=== PATIENT | female | born 1965 | race Caucasian/White ===

== ENCOUNTER → 2018-03-09 14:11 | Outpatient (CLI) | payer BC, SELFPAY ==
[2018-03-12 13:22] LABS: HPV Reflexed? NOT INDICATED
== END ==
PROVIDERS: Visit Provider Obstetrics & Gynecology
DX: Z12.4 Encounter for screening for malignant neoplasm of cervix (principal)
CPT/HCPCS: 88175; G0145

== ENCOUNTER → 2019-02-19 11:56 | Outpatient (CLI) | payer BC, SELFPAY ==
[2017-04-12 07:09] VITALS: BMI 27.1
--- NOTE | 2019-02-19 11:58 | RAD_ITS ---
STUDY: X-RAY CHEST REASON FOR EXAM: Female, 53 years old. Chest pain and cough TECHNIQUE: PA and lateral views of the chest. COMPARISON: None. FINDINGS: The lungs are clear and expanded. There is no demonstrated pleural abnormality. Normal size heart. Normal mediastinum and fritz. Normal visualized pulmonary arteries. Normal visualized aortic arch and descending thoracic aorta. There is a rotatory scoliosis. Normal visualized ribs, clavicles, and shoulders. There is no demonstrated abnormality of the visualized soft tissue structures of the upper abdomen. RAD/Chest PA and Lateral IMPRESSION: No acute pulmonary process Electronically Signed: Jose Gonzalez MD at 12:11 EDT , Service support ,
--- OUTSIDE RECORDS SUMMARY | 2019-02-24 01:27 | XMS RPT_ITS | CCD ---
:1965 External Reference #:[id number] Author Organization [facility] Care Team Providers Name Role Phone Katina Lundy Unavailable Slarb Unavailable Unavailable Mosnter Unavailable Allergies Reported Allergen Reaction(s) Severity Date of Onset Location Latex Exam Gloves Comprehens anabell Internal *MEDICAL DEVICES AND Medicin e (52524) SUPPLIES* Translations: [ Latex Exam Gloves *MEDICAL DEVICES AND SUPPLIES*] Tape 1X5yd *MEDICAL Compreh ensive Internal DEVICES AND SUPPLIES* Medici ne (14593) Translations: [ Tape 1X5yd *MEDICAL DEVICES AND SUPPLIES*] Medications Medication Name Sig Date Prescriber Location anastrozole Arimidex 1 MG Oral Melodie Dickerson Comprehen sive Tablet daily (1 MG) Internal Medicine Active (75042) Azithromycin Zithromax Z-Beni 250 02-01-2019 Lorenza Rausch ehensive MG Oral Tablet tad Internal Medicine Tablet qd for 0 days (13874) Quantity: 1 {Package} Refills: 0 Ordered: 01-Feb-2019 Lorenza Hook DO Start : 01-Feb-2019 Active Codeine / Cheratussin AC 07-24-2016 Melodie Dickerson Comprehensive guaiFENesin 100-10 MG/5ML Oral - Internal Medicine Syrup 1-2 Teaspoon 02-01-2019 (62540) q6hrs prn for cough for 0 days Quantity: 6 {Ounce} Refills: 0 Ordered: 01-Feb-2019 Melodie Dickerson LPN Start : 24-Jul-2016 End : 01-Feb-2019 Inactive Desoximetasone Topicort 0.25 % 07-24-2016 Melodie Dickreson Comprehens anabell External Ointment 1 Internal Medicine (one) Ointment daily (48993) for 0 days Quantity: 1 {Tube} Refills: 0 Ordered: 24-Jul-2016 Slarb Melodie SOTO Start : 24-Jul-2016 Active Ergocalciferol Ergocalciferol 92820 02-01-2019 Melodie Tuan Compr ehensive UNIT Oral Capsule 1 Arelis Ambriz Selenanolan Internal Medicine (one) Capsule weekly (18854) for 0 days Quantity: 24 {QS} Refills: 0 Ordered: 01-Feb-2019 Kamron MAHMOOD, Arelis Lundy CNP, Arelis Ambriz Start : 01-Feb-2019 Active Loratadine Loratadine 10 MG 07-24-2016 Arelis Lundy Comprehensi ve Oral Tablet 1 (one) Internal Medicine Tablet daily for 0 (76440) days Quantity: 30 {Tablet} Refills: 0 Ordered: 24-Jul-2016 Kamron ELECTROPLATER APPRENTICE, Arelis Lundy CNP, Arelis Ambriz Start : 24-Jul-2016 Active PARoxetine PARoxetine HCl 10 MG Melodie Tuan Compreh ensive Oral Tablet daily Internal M edicine (10 MG) Active (34782) Problems Active Problems Category Problem Name Status Date Location Cancer of breast Primary malignant Active Compre hensive Internal neoplasm of breast Medicine (23033) Nutritional deficiencies Vitamin D deficiency Active Comprehensive Internal Medicine (06918 ) Other skin disorders Eruption Active Compreh ensive Internal Medicine (85946 ) Comment: bilateral ears flaky and nec k line ? eczema Other upper respiratory Allergic rhinitis Active Comprehensive Internal disease Medicine (22040 ) Other upper respiratory Pain in throat Active Co mprehensive Internal disease Medicine (79569 ) Other upper respiratory Nasal sinus problem Active Comprehensive Internal disease Medicine (17376 ) Other upper respiratory Bacterial sinusitis Active Comprehensive Internal infections Medicine (04089 ) Comment: likely viral, sending strep culture recommend waiting till clear Residual codes; Increased body mass Active Compr ehensive Internal unclassified index Medicine (15862 ) Syncope Syncope Active Comprehensive I nternal Medicine (17378 ) Past or Other Problems Category Problem Name Status Date Location Headache; including Headache; including C omprehensive Internal migraine migraine Medicine (30059 ) Unclassified Rash/skin eruption Comprehen sive Internal Medicine (21513 ) Unclassified Sinus pressure Comprehensive Internal Medicine (64480 ) Unclassified Sinusitis, bacterial Compreh ensive Internal Medicine (87086 ) Unclassified Comprehensive I nternal Medicine (15772 ) Unclassified BMI 29.0-29.9,adult Comprehe nsive Internal Medicine (49763 ) Unclassified [facility]ancies [facility]11140 ) Comment: 2 pregnancies Unclassified Nonsmoker [facility] (72404) Results Result Name Value Range Unit Interpretation Flag Date Location progress on 2018-07 PROGRESS HNO ID: [id number] Normal 08-18-2018 [place] Author: Doug Rodriguez Service: ? Bakari Author Type: Nurse Practitioner ([id number]) Type: Progress Notes Filed: 08/18/2018 1:49 PM Note Text: Chief Complaint Patient presents with: Established Patient HPI: Jennifer Everett is a 52 year old female who presents here tod for follow up breast cancer. Per Dr. Butterfield's previous note: H/o post-menopausal female (menopause around age 39-40) with an unremarkable past medical history. ? She was found to have an abnormality on a screening mammogra m in the left breast. ? She underwent core needle biopsy on 05/08/2016. ? Pathology: Left breast, ultrasound-guided mammotome core biopsy: ?Invasive ductal carcinoma, nuclear gra de 3 (0.5 cm in greatest length). ? ER (clone 6F11) ?>95%, strong CO (clone 16/1E2) ?58%, moderate Her-2Neu (clone CB11) ?1-2+ ? IN SITU HYBRIDIZATION (GUADALUPE) FOR HER2 Interpretation: ?Not Amplified HER2 : CEP-17 Ratio:?0.95 Average HER2 Signal:?2.05 Average CEP-17 Signal:?2.15 Number of Tumor Cells Scanned:?50 ? Social and underwent partial breast mastectomy and sentinel lymph node biopsy on 05/24/2016 area ? Pathology: FROZEN SECTION DIAGNOSIS A. ?[place] lymph node, left axilla, biopsy: ?One lymph node, negative for metastati c carcinoma. ? MICROSCOPIC DIAGNOSIS A. ?Lymph node, left axilla, biopsy: ?One lymph node, negative for metastati c carcinoma. B. ?Left breast, lumpectomy: ?Invasive ductal carcinoma. ?Ductal carcinoma in situ. ?See cancer summary below. C. ?Additional left breast tissue: ?Skeletal muscle tissue and fibroadipos e tissue with changes consistent with previous biopsy site. ?Negative for malignancy in the submitt ed specimen. D. ?Additional anterior, superior and lateral margin: ?Focal intraductal hyperplasia with aty patria. ?Negative for carcinoma in the submitte d specimen. ? INVASIVE BREAST CANCER SUMMARY: (Including A-D) ??Specimen ??partial breast ??Procedure ??excision with wire-guided localization ??Lymph node sampling ??sentinel lymph node ??Specimen integrity ??multiple designated specimens ??Specimen size ?Lumpectomy specimen 5 x 5 x 3 cm ?Additional breast tissue 2 x 1.5 x 0.5 cm. ?Additional anterior, superior and lateral margin 5 x 2. 5 x 0.7 cm. ??Specimen laterality - left ??Tumor site ??not specified ??Tumor size ??1.2 x 1.2 x 1 cm ??Tumor focality ??single focus of invasive carcinoma ??Macroscopic and Microscopic extent of tumor: ?Skin ??invasive carcinoma does not invade into the dermi s or epidermis ?Nipple ??not applicable ???Skeletal muscle ??Skeletal muscle is present and is free of carcinoma (specimen B in block 2 and specimen C) ??Ductal carcinoma in situ (DCIS) - Ductal carcinoma in situ is present. ???Extensive intraductal component (EIC) - negative ?Estimated size (extent) of DCIS ??Intraductal carcinoma in situ comprise about 20% of the total tumor volume and present adjacent and away from the invasive tumor. ?Number of blocks with DCIS - 6 ?Number of blocks examined - 12 ??Architectural patterns ??cribriform and solid ?Nuclear grade ??grade 3 (high) ?Necrosis ??present, central (expansive ?comedo??necrosi s) ??Lobular carcinoma in situ (LCIS) ??not identified ??Histologic type of invasive carcinoma ??invasive ductal ca rcinoma (no special type) ??Histologic Grade: Cynthia grade: ?Glandular/tubular differentiation - score 3 ?Nuclear pleomorphism - score 3 ?Mitotic count ??score 2 ?Overall grade - 3 (score of 8) ??Margins: ?Margins uninvolved by invasive carcinoma. ?See comment. ??Treatment effect - no known presurgical therapy. ??Lymph-Vascular invasion ??not identified ??Dermal lymph-vascular invasion ??not identified ??Lymph nodes: ?Number of sentinel lymph nodes examined - 1 ?Total number of lymph nodes examined (sentinel and nonse ntinel) - 1 ?Number of lymph nodes with macrometastases, micrometasta ses and isolated tumor cells -?0 ?Method of evaluation of sentinel lymph nodes ??H AND?E , multiple levels and IHC. ?Distance metastasis ??not applicable ??Additional pathologic findings ??intraductal hyperplasia w ith focal atypia. ?- Changes consistent with previous biopsy site. ??Ancillary studies - previously performed on section of karen or ([id number] / [id number]). ?ER ??positive (>95%, strong) ?CO ??positive (58%, moderate) ?Her2 mickey ??equivocal (1-2+) ?Her2 by dual GUADALUPE ??negative / not amplified ??Microcalcifications ??present in DCIS ? Oncotype Dx--Recurrence score 31 indicating 20% risk recurre nce. ? ? ? Previous therapy: 1) AC followed by [facility]. 2) Radiation 01/20/17 to 02/18/17 ? Current therapy: 1) Anastrozole. ?Began radiation. ? I've had a burning throbbing pain to my left armpit for the past week and a half. I feel like I'm coming down with something. Besides that I'm having some joint pain. My elbows, hands and right foot pain . I feel like I'm walking on a marble. ? Appetite:good-eating is not fun like it used to be Energy level:it's been great up until the last week an a half. Denies fevers. Resp:occ. dry cough I've had a lot of drainage lately natalie es sob h/o seasonal allergies Cardiac:denies chest pain/palpitations GI:denies abd pain, n/v, moving bowels regularly :denies dysuria/hematuria Extrem:my hands, knees and elbows as above Endo:denies hot flashes Neuro:denies symptoms of neuropathy Skin:denies rashes/lesions Heme:denies bleeding The ROS is otherwise negative. Past medical history, appointments, medications, allergies r eviewed. No changes. EXAM: BP 120/66 Pulse 86 Temp 37.1 ?C (98.7 ?F) (Oral) Wt 76 .4 kg (168 lb 8 oz) LMP 08/01/2005 BMI 28.42 kg/m? APPEARANCE Well appearing, alert, in no acute distress, well -hydrated, well nourished. HEART RRR with normal S1 and S2, no murmurs LUNG clear to auscultation BREAST FEMALE no mass/nodule b/l, scar to L upper/outer-tend er, L axillary scar tender LYMPH NODES No cervical lymphadenopathy, No supraclavicular lymphadenopathy and No axillary lymphadenopathy. ABDOMEN bowel sounds normoactive, soft, non-tender, non-dist ended, without organomegaly or palpable masses EXTREMITIES No edema NEURO Awake, alert and oriented x 3, Normal gait and No invo luntary motions. SKIN Skin color, texture, turgor normal, no suspicious rashe s or lesions RADIOLOGY: Mammogram 08/13/18: IMPRESSION: BENIGN FINDING There is no mammographic evidence of malignancy. A 1 year sc reening mammogram is recommended. ASSESSMENT/PLAN: 1. Malignant neoplasm of upper-outer quadrant of left breast in female, estrogen receptor positive (HCC) - ICD9: 174.4, V86.0, ICD10 : C50.412, Z17.0 pT1c (1.2 cm; grade 3; no ALI) pN0(sln) MX ER/CO positive, H ER-2 nonamplified invasive ductal carcinoma the left breast. - ?No concerning findings on exam. - Tolerating arimidex poorly d/t joint pain. Advised pt. to stop arimidex for the next 3 weeks. Pt. will call office in 3 weeks with a n update on her symptoms. - ?Mammogram due in July 2019. - ?Follow up in 6 months. - ?Pt. aware to call office with any questions/concerns. ? The patient indicates understanding of these issues and agre es with the plan. Doug Yoo APRN.[facility] cnovsp on 2018-07-25 6 CNOVSP Visit (SP) Office (RIKY) [facility] JENNIFER EVERETT ([id number]) 1965 [place] Date Time Provider Department ([id number]) 08/18/18 11:30 AM DOUG YOO During your visit today, we recorded the following informati on about you: Temperature Pulse Blood pressure Weight 98.7 degrees 86/minute 120/66 76.4 kg Doug Yoo APRN.ELECTROPLATER APPRENTICE 08/18/2018 1:49 PM Signed Chief Complaint Patient presents with: Established Patient HPI: Jennifer Everett is a 52 year old female who presents he re today for follow up breast cancer. Per Dr. Butterfield's previous note: H/o post-menopausal female (menopause around age 39-40 ) with an unremarkable past medical history. ? She was found to have an abnormality on a screening mammogra m in the left breast. ? She underwent core needle biopsy on 05/08/2016. ? Pathology: Left breast, ultrasound-guided mammotome core biopsy: ?Invasive ductal carcinoma, nuclear g rade 3 (0.5 cm in greatest length). ? ER (clone 6F11) ?>95%, strong CO (clone 16/1E2) ?58%, moderate Her-2Neu (clone CB11) ?1-2+ ? IN SITU HYBRIDIZATION (GUADALUPE) FOR HER2 Interpretation: ?Not Amplified HER2 : CEP-17 Ratio:?0.95 Average HER2 Signal:?2.05 Average CEP-17 Signal:?2.15 Number of Tumor Cells Scanned:?50 ? Social and underwent partial breast mastectomy a nd sentinel lymph node biopsy on 05/24/2016 area ? Pathology: FROZEN SECTION DIAGNOSIS A. ?[place] lymph node, left axilla, biopsy: ?One lymph node, negative for metastati c carcinoma. ? MICROSCOPIC DIAGNOSIS A. ?Lymph node, left axilla, biopsy: ?One lymph node, negative for metastati c carcinoma. B. ?Left breast, lumpectomy: ?Invasive ductal carcinoma. ?Ductal carcinoma in situ. ?See cancer summary below. C. ?Additional left breast tissue: ?Skeletal muscle tissue and fibroadipos e tissue with changes consistent with previous biopsy site. ?Negative for malignancy in the submitt ed specimen. D. ?Additional anterior, superior and lateral margin: ?Focal intraductal hyperplasia with aty patria. ?Negative for carcinoma in the submitte d specimen. ? INVASIVE BREAST CANCER SUMMARY: (Including A-D) ??Specimen ??partial breast ??Procedure ??excision with wire-guided localization ??Lymph node sampling ??sentinel lymph node ??Specimen integrity ??multiple designated specimens ??Specimen size ?Lumpectomy specimen 5 x 5 x 3 cm ?Additional breast tissue 2 x 1.5 x 0.5 cm. ?Additional anterior, superior and lateral margin 5 x 2. 5 x 0.7 cm. ??Specimen laterality - left ??Tumor site ??not specified ??Tumor size ??1.2 x 1.2 x 1 cm ??Tumor focality ??single focus of invasive carcinoma ??Macroscopic and Microscopic extent of tumor: ?Skin ??invasive carcinoma does not invade into the dermi s or epidermis ?Nipple ??not applicable ???Skeletal muscle ??Skeletal muscle is present and is free of carcinoma (specimen B in block 2 and specimen C) ??Ductal carcinoma in situ (DCIS) - Ductal carcinoma in situ is present. ???Extensive intraductal component (EIC) - negative ?Estimated size (extent) of DCIS ??Intraduct al carcinoma in situ comprise about 20% of the total tumor volume and present adjacent and away from the invasive tumor. ?Number of blocks with DCIS - 6 ?Number of blocks examined - 12 ??Architectural patterns ??cribriform and solid ?Nuclear grade ??grade 3 (high) ?Necrosis ??present, central (expansive ?comedo??necrosi s) ??Lobular carcinoma in situ (LCIS) ??not identified ??Histologic type of invasiv e carcinoma ??invasive ductal carcinoma (no special type) ??Histologic Grade: Cynthia grade: ?Glandular/tubular differentiation - score 3 ?Nuclear pleomorphism - score 3 ?Mitotic count ??score 2 ?Overall grade - 3 (score of 8) ??Margins: ?Margins uninvolved by invasive carcinoma. ?See comment. ??Treatment effect - no known presurgical therapy. ??Lymph-Vascular invasion ??not identified ??Dermal lymph-vascular invasion ??not identified ??Lymph nodes: ?Number of sentinel lymph nodes examined - 1 ?Total number of lymph nodes examined (sentinel and nonse ntinel) - 1 ?Number of lymph nodes with macrometastases, microm etastases and isolated tumor cells -?0 ?Method of evaluation of sentinel lymph nodes ??H AND?E, multiple levels and IHC. ?Distance metastasis ??not applicable ??Additional pathologic findings ??intraductal h yperplasia with focal atypia. ?- ?- Changes consistent with previous biopsy site. ??Ancillary studies - previously performed on section of karen or ([id number] / [id number]). ?ER ??positive (>95%, strong) ?CO ??positive (58%, moderate) ?Her2 mickey ??equivocal (1-2+) ?Her2 by dual GUADALUPE ??negative / not amplified ??Microcalcifications ??present in DCIS ? Oncotype Dx--Recurrence score 31 indicating 20% risk recurre nce. ? ? ? Previous therapy: 1) AC followed by [facility]. 2) Radiation 01/20/17 to 02/18/17 ? Current therapy: 1) Anastrozole. ?Began radiation. ? I've had a burning throbbing pain to my left armpit f or the past week and a half. I feel like I'm coming down with s omething. Besides that I'm having some joint pain. My elbows, hands and right f oot pain. I feel like I'm walking on a marble. ? Appetite:good-eating is not fun like it used to be E nergy level:it's been great up until the last week an a half. Denies fevers. Resp:occ. dry cough I've gil d a lot of drainage lately denies sob h/o seasonal allergies Cardiac:denies chest pain/palpitations GI:denies abd pain, n/v, moving bowels regularly :denies dysuria/hematuria Extrem:my hands, knees and elbows as above Endo:denies hot flashes Neuro:denies symptoms of neuropathy Skin:denies rashes/lesions Heme:denies bleeding The ROS is otherwise negative. Past medical history, appoin tments, medications, allergies reviewed. No changes. EXAM: BP 120/66 Pulse 86 Temp 37.1 ?C (98.7 ?F) (Oral) Wt 76.4 kg (168 lb 8 oz) LMP 08/01/2005 BMI 28.42 kg/m? APPEARANCE Well appearing, alert, in no acute distress, we ll-hydrated, well nourished. HEART RRR with normal S1 and S2, no murmurs LUNG clear to auscultation BREAST FEMALE no mass/nodule b/l, scar to L upper/outer-tender, L axillary scar tender LYMPH NODES No cervical lymp hadenopathy, No supraclavicular lymphadenopathy and No axillary lymphadenopathy. ABDOMEN bowel sounds normoactive, soft, non-tender, non-dist ended, without organomegaly or palpable masses EXTREMITIES No edema NEURO Awake, alert and oriented x 3, Normal gait and N o involuntary motions. SKIN Skin color, texture, turgor normal, no suspicious rashe s or lesions RADIOLOGY: Mammogram 08/13/18: IMPRESSION: BENIGN FINDING There is no mammographic evidence of malignancy. A 1 year sc reening mammogram is recommended. ASSESSMENT/PLAN: 1. Malignant neoplasm of upper-outer quadrant of left breast in female, estrogen receptor positive (HCC) - ICD9: 174.4, V86.0, ICD10: C50.412, Z17.0 pT1c (1.2 cm; grade 3; no ALI) pN0(sln) MX ER/CO positive, HER-2 nonamplified invasive ductal carcinoma the left breast. - ?No concerning findings on exam. - Tolerating arimidex poorly d/t joint pain. Adv ised pt. to stop arimidex for the next 3 weeks. Pt. will call office in 3 weeks with an up date on her symptoms. - ?Mammogram due in July 2019. - ?Follow up in 6 months. - ?Pt. aware to call office with any questions/concerns. ? The patient indicates understanding of these iss ues and agrees with the plan. Doug Yoo APRN.ELECTROPLATER APPRENTICE Referring Provider: SIOBHAN BUTTERFIELD [[id number]] Allergies As of Date: 08/18/2018 Noted Allergy Reaction LATEX 10/14/2005 2 - Rash TAPE [Other] 10/14/2005 2 - Rash Date Reviewed: 08/18/2018 Reviewed by: Doug Yoo - Fully Assessed Reason for Visit: Established Patient [175] Primary Visit Diagnosis:Malignant neoplasm of upper-outer qu adrant of left breast in female, estrogen receptor positive (HCC) [C50.412, Z17.0] Order(s):VITAMIN D 50,000 unit capsuleTake 1 capsule by mout h once each week.Disp: 13 EachRfl: 1 Follow-up and Disposition History Recorded Prescriptions as of 08/18/2018 Sig: VITAMIN D2 50,000 UNIT CAPSULE Take 1 capsule by mouth once * PAROXETINE 10 MG TABLET Take 1 tablet by mouth once d* ANASTROZOLE 1 MG TABLET Take 1 tablet by mouth once d* MUCINEX D ORAL Take 1 tablet by mouth as nee* ZANTAC ORAL Take 1 tablet by mouth as nee* IBUPROFEN 200 MG TABLET Take 400 mg by mouth as neede* ACETAMINOPHEN 325 MG TABLET Take 650 mg by mouth every 6 * LORATADINE 10 MG TABLET Take one(1) tablet daily. Medication notes this encounter MULTIVITAMIN TABLET >> Marielle Garcia MA 08/18/2018 11:31 AM >> MARIELLE GARCIA MA Aug 18, 2018 11:31 AM Not taking. CALCIUM + D ORAL >> Marielle Garcia MA 08/18/2018 11:31 AM >> MARIELLE GARCIA MA Aug 18, 2018 11:31 AM Not taking. Problem List As Of Date 08/18/2018 Noted Resolved Symptomatic menopausal or female climacteric st*INVALID FOR* 07/08/2016 ATROPHIC VAGINITIS [N95.2] INVALID FOR* FEMALE STRESS INCONTINENCE [N39.3] INVALID FOR* Premature Menopause [E28.319] INVALID FOR* Cystocele, Midline [N81.11] INVALID FOR* Abdominal pain, right upper quadrant [R10.11] INVALID FOR* Abdominal pain, right lower quadrant [R10.31] INVALID FOR* Breast cancer of upper-outer quadrant of left f*INVALID FOR* Dysthymic disorder [F34.1] INVALID FOR* Malignant neoplasm of upper-outer quadrant of l*INVALID FOR* Encounter Status:Closed by DOUG YOO CNP on 08/18/18 progress on 2018-07 PROGRESS HNO ID: [id number] Normal 08-13-2018 [facility] Author: Millicent Boyer [place] ([id number]) Service: ? Author Type: ? Type: Progress Notes Filed: 08/13/2018 8:38 AM Note Text: Radiology Service Progress Note PATIENT NAME: Jennifer Everett DATE OF SERVICE: August 13, 2018 TIME: 8:38 AM PATIENT IDENTITY VERIFICATION COMPLETED USING TWO (2) METHOD S: Patient confirmed name verbally and Date of . PATIENT GENDER DATA: Female. status: : No status: NO. PATIENT RELEVANT IMPLANT DATA REVIEWED: Not Applicable RADIOLOGY DEPARTMENT: [facility] DATA: Not applicable SIGNED BY: Millicent Boyer August 13, 2018 8:38 AM daniela screening w tevin on 2018-08-13 DANIELA SCREENING W * * *Final Report* * * Normal 0 08-13-2018 [facility]EVIN DATE OF EXAM: Aug 13 2018 8:30AM [place] WRW [id number] - DANIELA SCREENING W TEVIN / ([id number]) PROCEDURE REASON: multiple diagnoses * * * * Physician Interpretation * * * * RESULT: #[id number] - DANIELA SCREENING W TEVIN BILATERAL DIGITAL SCREENING MAMMOGRAM TOMOSYNTHESIS WITH CAD : 08/13/2018 HISTORY: Multiple Diagnoses\ Screening Mammogram with TEVIN - patient reports NO breast symptoms /priors available for comparison. RESULT: TECHNIQUE: The study was acquired using full field digital t echnology and interpreted from soft copy. Digital Breast Tomosynthesis (DBT) images were obtained and used to assist in the interpretation of this examination. Current study was also evaluated with a Computer Aided Detec tion (CAD). Comparison is made to exams dated: 08/11/2017 mammogram, 07/23 mammogram - [facility], and 09/17/2012 mammogra m - [facility]. There are scattered fibroglandular el ements in both breasts. There are stable benign post operative findings and lumpecto my cavity in the left breast. No significant masses, calcifications, or other findings are seen in either breast. There has been no significant interval change. IMPRESSION: BENIGN FINDING There is no mammographic evidence of malignancy. A 1 year sc reening mammogram is recommended. Donna Carpenter M.D., jr/jonel:08/13/2018 09:32:05 Falsework Builder(s): RT Efren(R)(M), [facility] letter sent: Normal over 40 Mammogram BI-RADS: 2 Benign finding Multiple national specialty organizations have released maggie st cancer screening guidelines for women at average risk for developin g breast cancer - guidelines that are based on both evidence and opin ion, yet differ on when to start and how often to screen for breast c ancer. With representation from Breast Imaging, Internal Medicine, Women 's Health, Family Medicine, and Medical/Surgical Oncology, the [facility] has carefully reviewed the data and reached the following consen zena: 1) All women should engage in shared decision-making with eir providers to decide when to start and how often to screen; 2) All women should have the opportunity to start screening mammography at age 40; 3) For women ages 45-55, we recommend annual screening mammo grams; 4) For women ages 55 and over, we support both the transitio n from an annual to a biennial interval if this aligns more with patie nt's values and preferences, or continuation with annual screening; 5) All women should discuss with their providers when to sto p screening mammograms. Trade Marker: Jonel Transcribe Date/Time: Aug 13 2018 8:30A Dictated by: DONNA CARPENTER MD This examination was interpreted and the report reviewed and electronically signed by: DONNA CARPENTER MD on Aug 13 2018 9:32AM EST [id number] cnco on 2018-08-13 CNCO HNO ID: [id number] Normal 08-13-2018 [facility] Author: Mammography Coordinator ([id number]) Service: ? Author Type: Physician Type: Letter Filed: 08/17/2018 11:31 PM Note Text: August 13, 2018 PID: [id number] Jennifer Everett [address] [place] [address] Dear Ms. Everett, We are pleased to inform you that the results of your recent breast imaging exam on 08/13/2018 are normal. Early detection of cancer is very important. We also underst and recommendations regarding breast cancer screening are contro versial. Please discuss with your primary care provider which strateg y is best for you and whether a mammogram is right for you. Your imaging studies and report will be kept on file at [facility] as part of your permanent medical record and are available f or your continuing care. Thank you for allowing us to help in meeting your health car e needs. Sincerely, Dr. Carpenter Interpreting Radiologist [facility] (Normal over 40) tsh (thyroid stimulating hormone) (71609 ) Ordered By: Lining Stuffer on 2017-08-26 TSH Qn 2.380 0.450-4.500 {uIU/mL} Normal 08-26-2017 Compreh ensive Internal Medicine (69932) Comment: PATIENT NOT FASTINGPERFORMED BY: CB [facility] Blxagg0423 [facility] [id number] metabolic panel, comprehensive (15374) Ordered By: Lining Stuffer on 2017-08-26 Albumin [Mass/Vol] 4.5 3.5-5.5 g/dL Normal 08-26-2017 [facility] (37945) Comment: PATIENT NOT FASTINGPERFORMED BY: CB [facility] [id number] [facility] [id number] Albumin/Globulin [Mass 2.0 1.2-2.2 1 Normal 018 [facility] Internal ratio] Medicine ( 39962) Comment: PATIENT NOT FASTINGPERFORMED BY: CB [facility] Kiivgw5976 [facility] [place] [id number] ALP [Catalytic 71 39-117 [iU]/L Normal 08-26-2017 Comp rehensive Internal activity/Vol] [place] (14089) Comment: PATIENT NOT FASTINGPERFORMED BY: CB [facility] Uyfpiz4726 [facility] [id number] ALT [Catalytic 7 0-32 [iU]/L Normal 08-26-2017 Comp rehensive Internal activity/Vol] Medici ne (25490) Comment: PATIENT NOT FASTINGPERFORMED BY: CB [facility] Tvmptu9494 [address] RoadD[address] [place] [id number] AST [Catalytic 18 0-40 [iU]/L Normal 08-26-2017 [facility] rehensive Internal activity/Vol] [place] ne (12397) Comment: PATIENT NOT FASTINGPERFORMED BY: CB [facility] Rtrqpr8550 [address] RoadDublin [place] [id number] Bilirubin [Mass/Vol] 0.3 0.0-1.2 mg/dL Normal 8 [facility] Internal Medicine ( 89795) Comment: PATIENT NOT FASTINGPERFORMED BY: CB [facility] Ogzehj6661 [address] RoadDublin [place] [id number] Calcium [Mass/Vol] 9.6 8.7-10.2 mg/dL Normal 08-26-2017 [facility] Internal Medicine ( 27391) Comment: PATIENT NOT FASTINGPERFORMED BY: CB [facility] Kyaiqd6578 [address] RoadDublin [place] [id number] Chloride [Moles/Vol] 100 96-106 mmol/L Normal 8 [facility] Internal [facility] ( 36865) Comment: PATIENT NOT FASTINGPERFORMED BY: CB [facility] Onfdfl2042 [address] [place] [id number] CO2 [Moles/Vol] 26 18-29 mmol/L Normal 08-26-2017 [facility] (45792) Comment: PATIENT NOT FASTINGPERFORMED BY: CB [facility] Epeqdr5591 [address] RoadD[address] [place] [id number] Creatinine [Mass/Vol] 0.77 0.57-1.00 mg/dL Normal 08-27-19 18 [facility] Internal Medicine ( 46752) Comment: PATIENT NOT FASTINGPERFORMED BY: CB [facility] Ngpvnp5010 [address] [place] [id number] GFR/1.73 sq M predicted 103 mL/min/1.73 Normal [facility] Internal among [facility] CKD-EPI Medicine (78773) (S/P/Bld) [Vol rate/Area] Comment: PATIENT NOT FASTINGPERFORMED BY: CB [facility] Aejcrj3416 [address] RoadD[address] [place] [id number] GFR/1.73 sq M predicted 89 mL/min/1.73 Normal Comprehensive Internal among non-blacks CKD-EPI Medicine (82780) (S/P/Bld) [Vol rate/Area] Comment: PATIENT NOT FASTINGPERFORMED BY: CB [facility] Pfxcwa8522 [address] RoadD[address] [place] [id number] Globulin (S) [Mass/Vol] 2.3 1.5-4.5 g/dL Normal 2017 [facility] ( 64101) Comment: PATIENT NOT FASTINGPERFORMED BY: CB [facility] Rhllrt1263 [address] RoadD[address] [place] [id number] Glucose [Mass/Vol] 76 65-99 mg/dL Normal 08-26-2017 [facility] (30297) Comment: PATIENT NOT FASTINGPERFORMED BY: CB [facility] Fvnmio1697 [address] [place] [id number] Potassium [Moles/Vol] 4.5 3.5-5.2 mmol/L Normal 08-27-19 18 [facility] ( 45689) Comment: PATIENT NOT FASTINGPERFORMED BY: CB [facility] Zzisvk8457 [address] RoadD[address] [place] [id number] Protein [Mass/Vol] 6.8 6.0-8.5 g/dL Normal 08-26-2017 [facility] (11251) Comment: PATIENT NOT FASTINGPERFORMED BY: CB [facility] Hemgdq4097 [address] RoadD[address] [place] [id number] Sodium [Moles/Vol] 140 134-144 mmol/L Normal 08-26-2017 [facility] ( 81942) Comment: PATIENT NOT FASTINGPERFORMED BY: CB [facility] Jjdqeo1167 [address] [place] [id number] Urea nitrogen [Mass/Vol] 13 6-24 mg/dL Normal 08-26 [facility] ( 23923) Comment: PATIENT NOT FASTINGPERFORMED BY: CB [facility] Wqxkwd2565 [address] RoadD[address] [place] [id number] Urea nitrogen/Creatinine [Mass 17 9-23 1 Normal 08-26-2017 [facility] Internal ratio] Medicine ( 69386) Comment: PATIENT NOT FASTINGPERFORMED BY: CB [facility] Wokasu0631 [address] RoadD[address] [place] [id number] cbc, platelets & auto diff (28539) Ordered By: Lining Stuffer on 2017-08-26 Basophils (Bld) 0.1 0.0-0.2 {x10E3/uL} Normal 08-26-2017 [facility] [#/Vol] Medicine ( 51099) Comment: PATIENT NOT FASTINGPERFORMED BY: SUSAN [facility] Cxdqiv0266 [address] RoadD[address] [place] [id number] Basophils/100 WBC (Bld) 1 % Normal 2017 [facility] Internal Medicine (25487) Comment: PATIENT NOT FASTINGPERFORMED BY: SUSAN [facility] Sqwari7351 [address] [place] [id number] Eosinophils (Bld) 0.3 0.0-0.4 {x10E3/uL} Normal 08-26-2017 [facility] Internal [#/Vol] Medicine ( 11509) Comment: PATIENT NOT FASTINGPERFORMED BY: SUSAN Luis6370 [address] RoadD[address] [place] [id number] Eosinophils/100 WBC (Bld) 4 % Normal [facility] Internal Medicine (74936) Comment: PATIENT NOT FASTINGPERFORMED BY: SUSAN Luis6370 [address] RoadD[address] [place] [id number] Erythrocyte distribution 14.6 12.3-15.4 % Normal 08-26 [facility] Internal width (RBC) [Ratio] Medicine (13799) Comment: PATIENT NOT FASTINGPERFORMED BY: SUSAN [facility] Qacchn4350 [address] [place] [id number] Hematocrit (Bld) [Volume 39.9 34.0-46.6 % Normal 08-26 Comprehensive Internal fraction] Medicine ( 35974) Comment: PATIENT NOT FASTINGPERFORMED BY: SUSAN [facility] Mjbrgd7056 [address] [place] [id number] Hemoglobin (Bld) 12.9 11.1-15.9 g/dL Normal 08-26-2017 [facility] Internal [Mass/Vol] Medicine (72146) Comment: PATIENT NOT FASTINGPERFORMED BY: SUSAN [facility] Nhkgvv1471 [address] [place] [id number] Immature granulocytes 0.0 0.0-0.1 {x10E3/uL} Normal 018 Comprehensive Internal (Bld) [#/Vol] Medici [place] (73909) Comment: PATIENT NOT FASTINGPERFORMED BY: CB [facility] Eirdsh5885 [address] RoadD[address] [place] [id number] Immature granulocytes/100 WBC 0 % Normal 08-26-2017 [facility] Internal (d) Medicine ( 33547) Comment: PATIENT NOT FASTINGPERFORMED BY: CB [facility] Xhxcjm9300 [address] [place] [id number] Lymphocytes (Bld) 2.2 0.7-3.1 {x10E3/uL} Normal 08-26-2017 [facility] Internal [#/Vol] Medicine ( 81412) Comment: PATIENT NOT FASTINGPERFORMED BY: CB [facility] Opndwr1579 [address] [place] [id number] Lymphocytes/100 WBC (Bld) 34 % Normal [facility] Internal Medicine (98344) Comment: PATIENT NOT FASTINGPERFORMED BY: CB [facility] Puhkzt8998 [address] [place] [id number] MCH (RBC) [Entitic 29.4 26.6-33.0 pg Normal 08-26-2017 [facility] Internal mass] Medicine ( 08067) Comment: PATIENT NOT FASTINGPERFORMED BY: CB [facility] Wxqcse1957 [address]blin [place] [id number] MCHC (RBC) [Mass/Vol] 32.3 31.5-35.7 g/dL Normal 08-27-19 18 [facility] ( 71467) Comment: PATIENT NOT FASTINGPERFORMED BY: CB [facility] Koqmnc5938 [address] [place] [id number] MCV (RBC) [Entitic vol] 91 79-97 fL Normal 2017 [facility] Internal Medicine (96905) Comment: PATIENT NOT FASTINGPERFORMED BY: CB [facility] Vszmnr6280 [address] [place] [id number] Monocytes (Bld) 0.7 0.1-0.9 {x10E3/uL} Normal 08-26-2017 Co mprehensive Internal [#/Vol] Medicine ( 57180) Comment: PATIENT NOT FASTINGPERFORMED BY: CB [facility] Zovhai2295 [address] RoadD[address] [place] [id number] Monocytes/100 WBC (Bld) 11 % Normal 2017 [facility] Internal Medicine (97718) Comment: PATIENT NOT FASTINGPERFORMED BY: CB [facility] Nbjzmi1654 [address] [place] [id number] Neutrophils (Bld) 3.3 1.4-7.0 {x10E3/uL} Normal 08-26-2017 [facility] Internal [#/Vol] Medicine ( 81644) Comment: PATIENT NOT FASTINGPERFORMED BY: CB [facility] Uedpxo7809 [address] [place] [id number] Neutrophils/100 WBC (Bld) 50 % Normal [facility] Internal Medicine (62533) Comment: PATIENT NOT FASTINGPERFORMED BY: CB [facility] Zgvygd6824 [address] [place] [id number] Platelets (Bld) 287 150-379 {x10E3/uL} Normal 08-26-2017 [facility] Internal [#/Vol] Medicine ( 10825) Comment: PATIENT NOT FASTINGPERFORMED BY: CB [facility] Jcavai8788 [address] [place] [id number] RBC (Bld) [#/Vol] 4.39 3.77-5.28 {x10E6/uL} Normal 08-26-2017 [facility] ( 29349) Comment: PATIENT NOT FASTINGPERFORMED BY: CB [facility] Jwmkkt1456 [address] [place] [id number] WBC (Bld) [#/Vol] 6.5 3.4-10.8 {x10E3/uL} Normal 08-26-2017 [facility] Internal Medicine ( 16971) Comment: PATIENT NOT FASTINGPERFORMED BY: CB [facility] Mvmnyc6182 [address] [place] [id number] rapid strep test, office (10852) Ordered By: Melodie Dickerson on 2016-07-24 S. pyogenes Ag IA Ql Negative Normal 7 [facility] Internal (Unsp spec) Medicine (92712) calcifediol (04296) Ordered By: Lining Stuffer on 2016-07-24 25-Hydroxyvitamin 28.3 30.0-100.0 ng/mL Abnormal 07-24-2016 Comprehensive D2+25-Hydroxyvitamin D3 Internal Medicine [Mass/Vol] (19124) Comment: Vitamin D deficiency has bee n defined by the [place] ofMedicine and an Endocrine Society practice g uideline as alevel of serum 25-OH vitamin D less than 20 ng/mL (1,2).The Endo crine Society went on to further define vitamin Dinsufficiency as a level be tween 21 and 29 ng/mL (2).1. IOM ([place] of Medicine). 2010. Dietary ref erence intakes for calcium and D. [place]: The National Academies Press .2. Ladonna MF, Vargas HIGHTOWER, Asa GIL, et al. Evaluation, treatment , and prevention of vitamin D deficiency: an Endocrine Society clinical p chanel guideline. JCEM. 2010; 96(7):1911-30. PATIENT NOT FASTINGPERFORMED BY: CB [facility] Txdgjp3160 [facility] [id number] shila culture-other (70582) Ordered By: Lining Stuffer on 2016-07-24 Bacteria identified Final report Normal 017 [facility] Internal Respiratory culture [facility] Medicine (30607) (Unsp spec) Comment: PATIENT NOT FASTINGPERFORMED BY: CB [facility] Ggmmct0077 [address] RoadBetsy [facility] Hospitalin [place] [id number] Information: THROAT SRC:TH Bacteria identified RRF Normal 07-24-2016 [facility] Internal Respiratory culture Nom (Uns Medicine (82005) spec) Comment: Routine respiratory charlie PATIENT NOT FASTINGPERFORMED BY: CB [facility] Zvvgga0759 [address] RoadBetsy Johnson [facility] Hospitalin [place] [id number] Information: THROAT SRC:TH Vital Signs Vital Sign Description Value / Unit Date Location The following section is limited to 5 en tries per type and includes entries from the following time range: 20160724 - 9. BMI (Body Mass Index) 29.35 kg/m2 02-01-2019 [facility]prehens [facility] Internal Medicine (09978) BMI (Body Mass Index) 29.35 kg/m2 07-24-2016 [facility] (11562) Body Temperature 96.5 [degF] 02-01-2019 Comprehensive I nternal Medicine (42401) Body Temperature 97.2 [degF] 07-24-2016 [facility] I nternal Medicine (27972) Body weight 77.57 kg 02-01-2019 [facility] In ternal Medicine (72595) Body weight 77.57 kg 07-24-2016 [facility] In ternal Medicine (62354) BP Diastolic 82 mm[Hg] 02-01-2019 [facility] In ternal Medicine (49821) BP Diastolic 78 mm[Hg] 07-24-2016 [facility] In ternal Medicine (02843) BP Systolic 118 mm[Hg] 02-01-2019 [facility] In ternal Medicine (53168) BP Systolic 116 mm[Hg] 07-24-2016 [facility] In ternal Medicine (47781) BSA (Body Surface Area) 1.83 m2 02-01-2019 Comprehe nsive Internal Medicine (03638) BSA (Body Surface Area) 1.83 m2 07-24-2016 Comprehe nsive Internal Medicine (93876) Height 162.56 cm 02-01-2019 [facility] In ternal Medicine (92397) Height 162.56 cm 07-24-2016 [facility] In ternal Medicine (26622) Pulse (Heart Rate) 87 /min 02-01-2019 [facility] (22459) Pulse (Heart Rate) 83 /min 07-24-2016 [facility] (91973) Pulse Oximetry 97 % 02-01-2019 [facility] In ternal Medicine (07338) Pulse Oximetry 96 % 07-24-2016 [facility] In ternal Medicine (77609) Respiratory Rate 18 /min 02-01-2019 Comprehensive I nternal Medicine (99688) Respiratory Rate 17 /min 07-24-2016 [facility] I nternal Medicine (36473) Encounters Date Type Reason Provider Location 08-25-2017 - Annotation/Addendum Syncope Comprehe nsive Internal 08-25-2017 Medicine 07-26-2016 - Annotation/Addendum Vitamin D deficiency Comprehensive Internal 07-26-2016 Medicine 07-24-2016 - Office outpatient [facility] 07-24-2016 new 20 minutes Medicine 02-01-2019 - Office outpatient [facility]prehens [facility] Internal 02-01-2019 visit 15 minutes Medicine Procedures Procedure Name Date Provider Location Breast Biopsy Melodie Dickerson [facility] (22672) Comment: Apr 2016 Cyst Melodie Slarb [facility] (45258) Comment: Removal 1985 Cyst Melodie Lindseyrb [facility] (28516) Comment: neck 1972 Lumpectomy of breast Melodie Dickerson Comprehensi ve Internal Medicine (64003) Comment: May 24 2016 Plan of Treatment Plan Description Date Location Procedure Education Eprescribed prescriptions 02-01-2019 Co mprehensive Internal (G8553) Medicine (70248) Procedure Education Eprescribed prescriptions 07-24-2016 Co mprehensive Internal (G8553) Medicine (84307) Provider Instructions Follow up if no 07-24-2016 Comprehens [facility] Internal for Treatment improvement or if Medicine (4469 1) symptoms worsen Payers Payer Name Policy Number Location Comprehensive [employer] Medicine ([id number]) The following information is from the original human readable contentNo Payer Records Found Social History Type Social History Description Date Locat ion Alcohol use: [facility] In [facility] (29623) Tobacco use: Tobacco use: [facility] (83499) The following information is from the original human readable contentNo Social History Records Found Family History No Family History Records Found Unknown Family Member Name Dates Details Brother 1 Comments: Prostate C ancer; Status: Active Father Comments: DC Status: Active Maternal Grandmother Comments: CVA Status: Active Mother Comments: CVA Status: Active Instructions Name Dates Details How to access health information online Start: 01-Feb-2019 Instruction Type: Patient Education Indication: Sinus pressure How to access health information online - Detail Start: Instruction Type: Patient Education Indication: Sinus pressure Patient Instructions Start: 01-Feb-2019 Instruction Type: Provider Instructions for Treatment Indication: Sinus pressure How to access health information online Start: 24-Jul-2016 Instruction Type: Patient Education Indication: Sore throat How to access health information online - Detail Start: Instruction Type: Patient Education Indication: Sore throat Patient Instructions Start: 24-Jul-2016 Instruction Type: Provider Instructions for Treatment Indication: Sore throat Summary Purpose Advance Directives No Advanced Directives Records Found Additional Source Comments FOR RECORDS PERTAINING TO PATIENTS WHO ARE OR HAVE BEEN ENROLLED IN A CHEMICAL DEPENDENCY/SUBSTANCE ABUSE PROGRAM, SOME INFORMATION MAY BE OMITTED. This clinical summary was aggregated from multiple sources. Caution should be exercised in using it in the provision of clinical care. This summary normalizes information from multiple sources, and as a consequence, information in this document may materially changethe coding, format and clinical context of patient data. In addition, data may be omittedin some cases. CLINICAL DECISIONS SHOULD BE BASED ON THE PRIMARY CLINICAL RECORDS. [facility] provides no warranty or guarantee of the accuracy or completeness of information in this document. UNRECOGNIZED CONTENT PROVIDED BELOW FOR UNRECOGNIZED SECTION INFORMATION SOURCE DATE CREATED AUTHOR AUTHOR'S ORGANIZATIO N 02/23/2019 [facility] Terrance molina
== END ==
PROVIDERS: PCP Family Medicine; Referring Provider Physician Assistant Surgical; Visit Provider Physician Assistant Surgical
DX: J20.9 Acute bronchitis, unspecified (principal)
CPT/HCPCS: 71046

== ENCOUNTER → 2020-04-24 15:34 | Outpatient (CLI) | payer BC, SELFPAY ==
[2019-02-19 11:43] VITALS: BMI 28.1
[2020-04-27 15:46] LABS: HPV Reflexed? NOT INDICATED
== END ==
PROVIDERS: Visit Provider Obstetrics & Gynecology
DX: Z12.4 Encounter for screening for malignant neoplasm of cervix (principal)
CPT/HCPCS: 88175; G0145

== ENCOUNTER → 2021-05-22 13:00 | Outpatient (CLI) | payer OTHER, SELFPAY | PROVIDERS: Referring Provider Internal Medicine; Visit Provider Internal Medicine | DX: R05.9 Cough, unspecified (principal) | CPT/HCPCS: 87635; U0005; U0003 ==

== ENCOUNTER → 2021-10-16 | Outpatient (CLI) | payer BC, SELFPAY ==
--- NOTE | 2021-10-16 09:50 | RAD_ITS ---
STUDY: X-RAY - LEFT RADIUS AND ULNA REASON FOR EXAM: Female, 56 years old. Fall 2 weeks ago, left wrist pain TECHNIQUE: 2 view(s) of the forearm. COMPARISON: None. FINDINGS: There is no demonstrated soft tissue swelling. Normal visualized radius. Normal visualized ulna. RAD/Forearm 2 Views IMPRESSION: No demonstrated fracture or malalignment. Electronically Signed: Salvatore Red MD (Brooks) at 10:08 EDT Reading Location ID and State: [id number] , Service support ,
--- NOTE | 2021-10-16 09:50 | RAD_ITS ---
STUDY: X-RAY - LEFT WRIST REASON FOR EXAM: Female, 56 years old. Fall 2 weeks ago, left wrist pain TECHNIQUE: 4 view(s) of the wrist were obtained. COMPARISON: None. FINDINGS: Normal visualized distal radius and ulna. Normal radiocarpal articulation. Normal distal radioulnar articulation. Normal carpal bones. Normal carpal articulations. Normal carpometacarpal articulation of the thumb. Normal second through fifth carpometacarpal articulations. Normal visualized metacarpal bones. The soft tissue structures are unremarkable. RAD/Wrist min 3 Views IMPRESSION: No demonstrated fracture or malalignment. Electronically Signed: Salvatore Red MD (Brooks) at 10:08 EDT Reading Location ID and State: [address] [place] [address] , Service support ,
== END | disposition home or self-care (01) ==
LOC: MTRAD 09:48
PROVIDERS: PCP Family Medicine; Referring Provider Family Medicine; Visit Provider Family Medicine
DX: M25.532 Pain in left wrist (principal)
CPT/HCPCS: 73090; 73110

== ENCOUNTER → 2022-06-06 | Outpatient (CLI) | payer BC, SELFPAY ==
[2022-06-11 20:58] LABS: HPV APTIMA, High Risk Negative (Negative)
== END | disposition home or self-care (01) ==
LOC: LABSPEC 13:09
PROVIDERS: PCP Family Medicine; Visit Provider Obstetrics & Gynecology
DX: Z12.4 Encounter for screening for malignant neoplasm of cervix (principal)
CPT/HCPCS: 87624; 88175; G0145

== ENCOUNTER → 2022-06-21 | Outpatient (CLI) | payer BC, SELFPAY ==
[2022-06-21 13:52] LABS: Absolute Lymphocyte Count 3.09 X10^3/uL (0.83-4.51); Absolute Neutrophil Count 4.4 X10^3/uL (2.0-7.7); Basophil# 0.08 X10^3/uL; Basophil% 0.9 % (0-1); Eosinophil# 0.37 X10^3/uL; Eosinophils% 4.3 % (0-5); Hematocrit 41.4 % (37-47); Hemoglobin 13.3 g/dL (12.0-15.0); Lymphocyte # 3.09 X10^3/ul (0.83-4.51); Lymphocyte % 35.8 % (19-41); Mean Corp Hgb Conc 32.1 g/dL (32-36); Mean Corpuscular Hgb 29.8 pg (27.0-32.0); Mean Corpuscular Volume 92.8 fL (81-99); Monocyte# 0.67 X10^3/uL; Monocyte% 7.8 % (0-10); NRBC Flagged by Analyzer 0 % (0-5); Neutrophil % 50.9 % (47-70); Platelet Count 304 K/mm3 (150-450); RBC Distribution Width CV 13.5 % (11.6-14.6); RBC Distribution Width SD 46.2 fl (35.1-43.9); Red Blood Count 4.46 M/mm3 (4.2-5.4); White Blood Count 8.6 K/mm3 (4.4-11.0)
[2022-06-21 14:15] LABS: ALB/GLOB Ratio 1.1 RATIO (0.9-2.4); AST(SGOT) 22 U/L (15-37); Alanine Aminotransfer ALT/SGPT 14 U/L (13-56); Alkaline Phosphatase 72 U/L (45-117); Anion Gap 9 (5-15); BUN 9 mg/dL (7-18); BUN/Creat Ratio 11.3 RATIO (10-20); Calcium,Total 8.9 mg/dL (8.5-10.1); Chloride 104 mmol/L (98-107); Cholesterol 234 mg/dL (200); Creatinine, Serum 0.79 mg/dL (0.55-1.02); EST Glomerular Filtration Rate 79 mL/min (>60); Est Glom Filt Rate - Afr Amer 96 mL/min (>60); Globulin 3.8 g/dL (2.2-4.2); Glucose 83 mg/dL (74-106); High Density Lipoprotein 69 mg/dL; Potassium 3.9 mmol/L (3.5-5.1); Protein, Total 7.8 g/dL (6.4-8.2); Sodium Level 138 mmol/L (136-145); Thyroid Stim Hormone (TSH) 2.05 uIU/mL (0.358-3.74); Triglycerides 104 mg/dL; Very Low Density Lipoprotein 21 mg/dL (5-40)
[2022-06-25 20:18] LABS: Vitamin D 1,25-Dihydroxy 92.2 pg/mL (24.8-81.5)
== END | disposition home or self-care (01) ==
LOC: MTLAB 12:45
PROVIDERS: PCP Nurse Practitioner Family; Referring Provider Nurse Practitioner Family; Visit Provider Nurse Practitioner Family
DX: C50.919 Malignant neoplasm of unspecified site of unspecified female breast (principal); Z13.220 Encounter for screening for lipoid disorders; E55.9 Vitamin D deficiency, unspecified; I49.9 Cardiac arrhythmia, unspecified
CPT/HCPCS: 36415; 80053; 80061; 82652; 84443; 85025

== ENCOUNTER → 2022-10-08 08:39 | Outpatient (REF) | payer SELFPAY | LOC: NS 08:39 | PROVIDERS: PCP Nurse Practitioner Family | DX: Z00.00 Encounter for general adult medical examination without abnormal findings (principal) ==

== ENCOUNTER → 2023-10-31 | Outpatient (CLI) | payer BC, SELFPAY ==
--- NOTE | 2023-10-31 11:30 | RAD_ITS ---
STUDY: X-RAY - LUMBAR SPINE REASON FOR EXAM: Female, 58 years old. Low back strain TECHNIQUE: 5 view(s) of the lumbar spine were obtained including oblique views. COMPARISON: None FINDINGS: There is straightening of the normal lumbar lordosis. There is a mild levoscoliosis of the lumbar spine. There is a normal alignment of the vertebrae. Normal vertebral bodies and endplates. Moderate degree of displacement at the L4-L5 and L5-S1 levels. There is atherosclerotic calcification of the abdominal aorta without a demonstrated aneurysm. RAD/L/S Spine Min 4 Views IMPRESSION: Degenerative changes of the spine, as detailed above. Mild levoscoliosis. Electronically Signed: Deandre Flores MD at 12:46 EDT ,
== END | disposition home or self-care (01) ==
LOC: MTRAD 11:26
PROVIDERS: PCP Nurse Practitioner Family; Referring Provider Physician Assistant Surgical; Visit Provider Physician Assistant Surgical
DX: S39.012A Strain of muscle, fascia and tendon of lower back, initial encounter (principal)
CPT/HCPCS: 72110